=== PATIENT | female | born 2000 | race Caucasian/White ===

== ENCOUNTER 2018-02-21 12:39 | Emergency (ER) | payer OTHER ==
[~2018-02-21] VITALS: Ht 165.1 cm; Wt 62.0 kg
[2018-02-21 12:45] VITALS: BP 120/67; PULSE 79; RESP 18; TEMP 99.1; O2SAT 96
[2018-02-21] MEDS ORDERED: ZOLO50TA PO (13:13)
--- NOTE | 2018-02-21 13:30 | PD ---
HPI Chief Complaint: Abdominal Pain Time Seen by Provider: 12:59 Travel History International Travel<30 days: No Contact w/Intl Traveler<30days: No Traveled to known affect area: No History of Present Illness HPI 17-year-old female came to the emergency room with history right lower quadrant pain for past 1 month. Patient says the pain seems to get worse after she eats and she notices a bump there. She states that currently she is in pain although she did not look to be in any discomfort. Patient has seen SOUND ASSISTANT for this couple times and had pelvic exam and ultrasound done and they have all been normal so far. There is a first time she is coming to the emergency room. No history of vomiting or diarrhea. She is otherwise a healthy person. She had a emergency last year. Patient had a temperature of 99.1 in triage but otherwise normal vital signs PFSH Past Medical History Narrative Medical List of her past medical, surgical, social family history reviewed from the nursing note. Anxiety: Yes Depression: Yes Tetanus Vaccination: < 5 Years ?: Not : 1 Para: 1 Past Surgical History Section: Yes Social History Alcohol Use: No Tobacco Use: Yes Substance Use: No Allergies-Medications (Allergen,Severity, Reaction): Coded Allergies: No Known Allergies (Unverified , 02/21/18) Comments No known drug allergies. Reported Meds & Prescriptions Reported Meds & Active Scripts Active Bentyl (Dicyclomine HCl) 10 Mg Cap 10 Mg PO TID PRN Reported Zoloft (Sertraline HCl) 50 Mg Tab 50 Mg PO DAILY Narrative Medication List of her home medications reviewed from the nursing note. Review of Systems Except as stated in HPI: all other systems reviewed are Neg Gastrointestinal: Positive: Abdominal Pain Physical Exam Narrative GENERAL: Awake, alert, no obvious distress SKIN: Focused skin assessment warm/dry. HEAD: Atraumatic. Normocephalic. EYES: Pupils equal and round. No scleral icterus. No injection or drainage. ENT: No nasal bleeding or discharge. Mucous membranes pink and moist. NECK: Trachea midline. No JVD. CARDIOVASCULAR: Regular rate and rhythm. No murmur appreciated. RESPIRATORY: No accessory muscle use. Clear to auscultation. Breath sounds equal bilaterally. GASTROINTESTINAL: Abdomen soft, non-tender, nondistended. Hepatic and splenic margins not palpable. MUSCULOSKELETAL: No obvious deformities. No clubbing. No cyanosis. No edema. NEUROLOGICAL: Awake and alert. No obvious cranial nerve deficits. Motor grossly within normal limits. Normal speech. PSYCHIATRIC: Appropriate mood and affect; insight and judgment normal. Data Data Last Documented VS Orders Orders Complete Blood Count With Diff (02/21/18 13:33) Basic Metabolic Panel (Bmp) (02/21/18 13:33) Urinalysis - C+S If Indicated (02/21/18 13:33) C-Reactive Protein (Crp) (02/21/18 13:33) Ibuprofen (Motrin) (02/21/18 13:45) Ed Discharge Order (02/21/18 14:25) Labs Laboratory Tests Test 02/21/18 13:45 White Blood Count 6.9 TH/MM3 Red Blood Count 4.77 MIL/MM3 Hemoglobin 14.4 GM/DL Hematocrit 42.4 % Mean Corpuscular Volume 89.0 FL Mean Corpuscular Hemoglobin 30.1 PG Mean Corpuscular Hemoglobin Concent 33.9 % Red Cell Distribution Width 12.7 % Platelet Count 226 TH/MM3 Mean Platelet Volume 9.0 FL Neutrophils (%) (Auto) 48.7 % Lymphocytes (%) (Auto) 40.1 % Monocytes (%) (Auto) 8.2 % Eosinophils (%) (Auto) 1.9 % Basophils (%) (Auto) 1.1 % Neutrophils # (Auto) 3.3 TH/MM3 Lymphocytes # (Auto) 2.7 TH/MM3 Monocytes # (Auto) 0.6 TH/MM3 Eosinophils # (Auto) 0.1 TH/MM3 Basophils # (Auto) 0.1 TH/MM3 CBC Comment DIFF FINAL Differential Comment Urine Color LIGHT-YELLOW Urine Turbidity HAZY Urine pH 7.0 Urine Specific Accident 1.018 Urine Protein NEG mg/dL Urine Glucose (UA) NEG mg/dL Urine Ketones NEG mg/dL Urine Occult Blood NEG Urine Nitrite NEG Urine Bilirubin NEG Urine Urobilinogen LESS THAN 2.0 MG/DL Urine Leukocyte Esterase NEG Urine RBC LESS THAN 1 /hpf Urine WBC 1 /hpf Urine Squamous Epithelial Cells 9 /hpf Urine Amorphous Sediment RARE Microscopic Urinalysis Comment CULT NOT INDICATED Blood Urea Nitrogen 15 MG/DL Creatinine 0.71 MG/DL Random Glucose 88 MG/DL Calcium Level 9.1 MG/DL Sodium Level 139 MEQ/L Potassium Level 4.0 MEQ/L Chloride Level 108 MEQ/L Carbon Dioxide Level 24.1 MEQ/L Anion Gap 7 MEQ/L Estimat Glomerular Filtration Rate 106 ML/MIN C-Reactive Protein LESS THAN 0.29 MG/DL MDM Medical Decision Making Medical Screen Exam Complete: Yes Emergency Medical Condition: Yes Medical Record Reviewed: Yes Differential Diagnosis UTI, abdominal pain NOS, appendicitis Narrative Course 2:04 PM given the fact the patient is very young and the pain has been going on for past 1 month I do not detect any acute situation here. I have ordered CBC CRP and if any of those are abnormal only then will I proceed to a CAT scan. Otherwise she will be discharged home. I explained this to the patient and she understands. Awaiting for the blood work and UA. 2:25 PM all the blood test and UA results are within normal limit. C-reactive protein is normal. I will discharge her. Procedures EKG Prior to Arrival: No Diagnosis Primary Impression: Acute on chronic abdominal pain Additional Impression: Abdominal pain, unspecified site Referrals: Primary Care Physician 3 days Additional Instructions: Please return to the ER if condition worsens or any other new concerns. Otherwise follow-up with your primary care. You can take [id number] Tylenol/Motrin/Advil/ibuprofen for the pain. Med/Other Pt SpecificInfo: No Change to Meds Disposition: 01 DISCHARGE HOME Condition: Stable Paul Gallegos MD February 21, 2018 13:30
[2018-02-21] MEDS ORDERED: IBUPROFEN 600 MG TAB PO ONE (13:45)
[2018-02-21 13:59] LABS: AUTOMATED NEUTROPHIL # 3.3 TH/MM3 (1.8-7.7); BASOPHIL # 0.1 TH/MM3 (0-0.2); BASOPHIL % 1.1 % (0.0-2.0); EOSINOPHIL # 0.1 TH/MM3 (0-0.4); EOSINOPHIL % 1.9 % (0.0-4.0); HEMATOCRIT 42.4 % (35.0-46.0); HEMOGLOBIN 14.4 GM/DL (11.6-15.3); LYMPH % 40.1 % (9.0-44.0); LYMPHOCYTE # 2.7 TH/MM3 (1.0-4.8); MEAN CORPUSCULAR HEMOGLOBIN 30.1 PG (27.0-34.0); MEAN CORPUSCULAR HGB CONC 33.9 % (32.0-36.0); MONO % 8.2 % (0.0-8.0); MONOCYTE # 0.6 TH/MM3 (0-0.9); NEUT % 48.7 % (16.0-70.0); PLATELET COUNT 226 TH/MM3 (150-450); RED BLOOD COUNT 4.77 MIL/MM3 (4.00-5.30); RED CELL DISTRIBUTION WIDTH 12.7 % (11.6-17.2); WHITE BLOOD COUNT 6.9 TH/MM3 (4.0-11.0)
[2018-02-21 14:16] LABS: AMORPHOUS SEDIMENT, URINE RARE; BILIRUBIN, URINE NEG (NEG); BLOOD, URINE NEG (NEG); GLUCOSE,URINE NEG (NEG); KETONE, URINE NEG (NEG); NITRITE,URINE NEG (NEG); SQUAMOUS EPITHELIAL CELL URINE 9 /hpf (0-5); URINE COLOR LIGHT-YELLOW (YELLW/STRAW); URINE LEUKOCYTE ESTERASE NEG (NEG)
[2018-02-21 14:24] LABS: BICARBONATE 24.1 MEQ/L (21.0-32.0); BLOOD UREA NITROGEN 15 MG/DL (7-18); C-REACTIVE PROTEIN LESS THAN 0.29 MG/DL (0.00-0.30); CALCIUM 9.1 MG/DL (8.5-10.1); CHLORIDE 108 MEQ/L (98-107); CREATININE 0.71 MG/DL (0.50-1.00); GLOMERULAR FILTRATION RATE 106 ML/MIN (>89); GLUCOSE,RANDOM 88 MG/DL (74-106); SODIUM (NA) 139 MEQ/L (136-145)
[2018-02-21] MEDS ORDERED: DICY10 PO (21:58)
== END 2018-02-21 14:50 | disposition home or self-care (01) ==
LOC: NEPD 12:39
DX: R10.9 Unspecified abdominal pain (principal); G89.29 Other chronic pain; R10.31 Right lower quadrant pain; F41.8 Other specified anxiety disorders; Z72.0 Tobacco use
CPT/HCPCS: 80048; 81001; 85025; 86140; 99283

== ENCOUNTER 2018-02-21 18:30 | Emergency (ER) | payer OTHER ==
[~2018-02-21] VITALS: Ht 165.1 cm; Wt 56.8 kg
[~2018-02-21 18:30] MED LIST: ZOLO50TA PO
[2018-02-21 18:49] VITALS: BP 125/58; PULSE 82; RESP 18; TEMP 99.3; O2SAT 99
[2018-02-21] MEDS ORDERED: SODIUM CHLOR 0.9% 1000 ML INJ 1,000 ML IV SCH (19:19)
--- NOTE | 2018-02-21 19:23 | PD ---
HPI Chief Complaint: Abdominal Pain Time Seen by Provider: 19:16 Travel History International Travel<30 days: No Contact w/Intl Traveler<30days: No Traveled to known affect area: No History of Present Illness HPI 17-year-old female here for evaluation of right lower quadrant abdominal pain. The patient reports having this pain for the last month. She was seen in the emergency department earlier and had normal labs and was discharged home with outpatient follow-up. She has been seen by gynecology for this pain and reports pelvic exams and pelvic ultrasounds, all of which been normal. She denies abnormal vaginal discharge or bleeding. She does not get menstrual periods because she receives Depo-Provera. No urinary symptoms. Pain is described as cramping, 8 out of 10, constant, worse after eating, nonradiating, improved when pressure is applied to the area. She becomes nauseous but has not vomited. No diarrhea. She reports low-grade fevers. She is concerned about this possibly being her appendix. [facility] Past Medical History Anxiety: Yes Depression: Yes ?: Not LMP: UNKNOWN : 1 Para: 1 Past Surgical History Section: Yes Social History Alcohol Use: No Tobacco Use: Yes Substance Use: No Allergies-Medications (Allergen,Severity, Reaction): Coded Allergies: No Known Allergies (Unverified , 02/21/18) Reported Meds & Prescriptions Reported Meds & Active Scripts Active Reported Zoloft (Sertraline HCl) 50 Mg Tab 50 Mg PO DAILY Review of Systems Except as stated in HPI: all other systems reviewed are Neg Physical Exam Narrative GENERAL: Well-developed, well-nourished, no apparent distress. SKIN: Focused skin assessment warm/dry. HEAD: Atraumatic. Normocephalic. EYES: Pupils equal and round. No scleral icterus. No injection or drainage. ENT: No nasal bleeding or discharge. Mucous membranes pink and moist. NECK: Trachea midline. No JVD. CARDIOVASCULAR: Regular rate and rhythm. No murmur appreciated. RESPIRATORY: No accessory muscle use. Clear to auscultation. Breath sounds equal bilaterally. GASTROINTESTINAL: Abdomen soft, nondistended. Mild right lower quadrant tenderness without rebound or guarding. Rest of abdomen is soft and nontender. Normal bowel sounds. No hernias. No masses. MUSCULOSKELETAL: No obvious deformities. No clubbing. No cyanosis. No edema. NEUROLOGICAL: Awake and alert. No obvious cranial nerve deficits. Motor grossly within normal limits. Normal speech. PSYCHIATRIC: Appropriate mood and affect; insight and judgment normal. Data Data Last Documented VS Vital Signs Date Time Temp Pulse Resp B/P (MAP) Pulse Ox O2 Delivery O2 Flow Rate FiO2 02/21/18 19:50 20 02/21/18 18:49 99.3 82 125/58 (80) 99 Orders Orders Beta Hcg (Quant/Titer) (02/21/18 19:19) Complete Blood Count With Diff (02/21/18 19:19) Comprehensive Metabolic Panel (02/21/18 19:19) Prothrombin Time / Inr (Pt) (02/21/18 19:19) Act Partial Throm Time (Ptt) (02/21/18 19:19) Urinalysis - C+S If Indicated (02/21/18 19:19) Ct Abd/Pel W Iv Contrast(Rout) (02/21/18 19:19) Iv Access Insert/Monitor (02/21/18 19:19) Ecg Monitoring (02/21/18 19:19) Oximetry (02/21/18 19:19) Sodium Chlor 0.9% 1000 Ml Inj (Ns 1000 M (02/21/18 19:19) Sodium Chloride 0.9% Flush (Ns Flush) (02/21/18 19:30) Diatrizoate Liq ( Gastroview Liq) (02/21/18 19:30) Dicyclomine (Bentyl) (02/21/18 19:30) Oral Contrast - Adult (02/21/18 19:26) Ed Urine Pregnancytest Poc (02/21/18 19:57) Iohexol 350 Inj (Omnipaque 350 Inj) (02/21/18 21:40) Labs Laboratory Tests Test 02/21/18 19:40 02/21/18 19:45 Urine Color YELLOW Urine Turbidity CLEAR Urine pH 6.5 Urine Specific Garretson 1.025 Urine Protein NEG mg/dL Urine Glucose (UA) NEG mg/dL Urine Ketones NEG mg/dL Urine Occult Blood NEG Urine Nitrite NEG Urine Bilirubin NEG Urine Urobilinogen LESS THAN 2.0 MG/DL Urine Leukocyte Esterase NEG Urine WBC 2 /hpf Urine Squamous Epithelial Cells 5 /hpf Urine Mucus FEW /lpf Microscopic Urinalysis Comment CULT NOT INDICATED White Blood Count 7.8 TH/MM3 Red Blood Count 4.96 MIL/MM3 Hemoglobin 15.6 GM/DL Hematocrit 43.8 % Mean Corpuscular Volume 88.2 FL Mean Corpuscular Hemoglobin 31.4 PG Mean Corpuscular Hemoglobin Concent 35.6 % Red Cell Distribution Width 12.8 % Platelet Count 227 TH/MM3 Mean Platelet Volume 9.0 FL Neutrophils (%) (Auto) 44.6 % Lymphocytes (%) (Auto) 45.2 % Monocytes (%) (Auto) 7.0 % Eosinophils (%) (Auto) 2.2 % Basophils (%) (Auto) 1.0 % Neutrophils # (Auto) 3.5 TH/MM3 Lymphocytes # (Auto) 3.5 TH/MM3 Monocytes # (Auto) 0.5 TH/MM3 Eosinophils # (Auto) 0.2 TH/MM3 Basophils # (Auto) 0.1 TH/MM3 CBC Comment DIFF FINAL Differential Comment Prothrombin Time 10.0 SEC Prothromb Time International Ratio 1.0 RATIO Activated Partial Thromboplast Time 26.6 SEC Blood Urea Nitrogen 17 MG/DL Creatinine 0.71 MG/DL Random Glucose 83 MG/DL Total Protein 8.3 GM/DL Albumin 4.5 GM/DL Calcium Level 9.3 MG/DL Alkaline Phosphatase 94 U/L Aspartate Amino Transf (AST/SGOT) 19 U/L Alanine Aminotransferase (ALT/SGPT) 19 U/L Total Bilirubin 0.3 MG/DL Sodium Level 140 MEQ/L Potassium Level 4.0 MEQ/L Chloride Level 105 MEQ/L Carbon Dioxide Level 23.7 MEQ/L Anion Gap 11 MEQ/L Estimat Glomerular Filtration Rate 106 ML/MIN Human Chorionic Gonadotropin, Quant LESS THAN 1 MIU/ML [facility] Medical Decision Making Medical Screen Exam Complete: Yes Emergency Medical Condition: Yes Differential Diagnosis Appendicitis, colitis, ovarian cyst, ovarian torsion less likely, UTI, cystitis , PID, TOA Narrative Course Vital signs are within normal limits. CBC and CMP are essentially unremarkable. UA is within normal limits, not suggestive of UTI. Beta-hCG is negative. CT abdomen pelvis: CONCLUSION: No acute abnormalities seen. The appendix is not seen. Significant inflammatory change is not seen. The patient was made aware of all findings. On reassessment she is resting comfortably and states she feels significantly improved after receiving Toradol and Bentyl. She was given a copy of her CT abdomen pelvis port. Again she has already seen a ENGINE TESTING SUPERVISOR for this pain within the last month and states that she had pelvic exams and pelvic ultrasound that were unremarkable. She does not have any abnormal vaginal discharge or bleeding today. I do not believe pelvic workup is necessary at this time. Patient agrees with this. Patient likely has some irritable bowel syndrome. She is stable for discharge home with outpatient follow-up. I will give her the name of the aed trainer on- call today with him to make an appointment with this week. She was also advised to follow-up with her primary care physician this week. I will give her a prescription for Bentyl. She was advised on when to return to the emergency department. She verbalizes understanding and agreement with plan. Diagnosis Primary Impression: Abdominal pain Qualified Codes: R10.31 - Right lower quadrant pain Referrals: Miryam Bee MD 3 days Primary Care Physician 3 days Additional Instructions: Follow-up with your primary care physician this week. Follow-up with aed trainer Dr. Bee or a aed trainer of your choice this week. Return to the emergency department for worsening symptoms or any other concerns. Scripts Dicyclomine (Bentyl) 10 Mg Cap 10 MG PO TID Y for Bowel Management, #30 CAP 0 Refills Prov: Jan Owens MD 02/21/18 Disposition: 01 DISCHARGE HOME Condition: Stable Jan Owens MD February 21, 2018 19:23
[2018-02-21] MEDS ORDERED: DIATRIZOATE MEGLUM/DIATRIZOATE SOD 9 ML CUP PO ONE (19:30)
[2018-02-21] MEDS ORDERED: DICYCLOMINE HCL 10 MG CAP PO ONE (19:30)
[2018-02-21] MEDS ORDERED: SODIUM CHLORIDE 0.9% FLUSH 10 ML FLUSH IV FLUSH PRN (19:30)
[2018-02-21 19:50] VITALS: RESP 20
[2018-02-21 20:11] LABS: AUTOMATED NEUTROPHIL # 3.5 TH/MM3 (1.8-7.7); BASOPHIL # 0.1 TH/MM3 (0-0.2); EOSINOPHIL # 0.2 TH/MM3 (0-0.4); EOSINOPHIL % 2.2 % (0.0-4.0); HEMATOCRIT 43.8 % (35.0-46.0); HEMOGLOBIN 15.6 GM/DL (11.6-15.3); LYMPH % 45.2 % (9.0-44.0); LYMPHOCYTE # 3.5 TH/MM3 (1.0-4.8); MEAN CELL VOLUME 88.2 FL (80.0-100.0); MEAN CORPUSCULAR HEMOGLOBIN 31.4 PG (27.0-34.0); MEAN CORPUSCULAR HGB CONC 35.6 % (32.0-36.0); MONOCYTE # 0.5 TH/MM3 (0-0.9); NEUT % 44.6 % (16.0-70.0); PLATELET COUNT 227 TH/MM3 (150-450); RED BLOOD COUNT 4.96 MIL/MM3 (4.00-5.30); RED CELL DISTRIBUTION WIDTH 12.8 % (11.6-17.2); WHITE BLOOD COUNT 7.8 TH/MM3 (4.0-11.0)
[2018-02-21 20:19] LABS: BILIRUBIN, URINE NEG (NEG); BLOOD, URINE NEG (NEG); GLUCOSE,URINE NEG (NEG); KETONE, URINE NEG (NEG); MUCUS URINE FEW /lpf (OCC); NITRITE,URINE NEG (NEG); PH, URINE 6.5 (5.0-8.5); SQUAMOUS EPITHELIAL CELL URINE 5 /hpf (0-5); URINE COLOR YELLOW (YELLW/STRAW); URINE LEUKOCYTE ESTERASE NEG (NEG)
[2018-02-21 20:32] LABS: ALBUMIN 4.5 GM/DL (3.4-5.0); AST (GOT) 19 U/L (16-38); BICARBONATE 23.7 MEQ/L (21.0-32.0); BLOOD UREA NITROGEN 17 MG/DL (7-18); CALCIUM 9.3 MG/DL (8.5-10.1); CHLORIDE 105 MEQ/L (98-107); CREATININE 0.71 MG/DL (0.50-1.00); GLOMERULAR FILTRATION RATE 106 ML/MIN (>89); GLUCOSE,RANDOM 83 MG/DL (74-106); SODIUM (NA) 140 MEQ/L (136-145)
[2018-02-21 20:34] LABS: ALT (GPT) 19 U/L (9-42)
[2018-02-21 20:38] LABS: ALKALINE PHOSPHATASE 94 U/L (45-117); TOTAL BILIRUBIN ADULT 0.3 MG/DL (0.2-1.0); TOTAL PROTEIN 8.3 GM/DL (6.4-8.2)
[2018-02-21] MEDS ORDERED: IOHEXOL 350 MG/ML 10 ML VIAL (for RAD DIAG) IVCONTRAST ONE (21:40)
--- NOTE | 2018-02-21 21:52 | RADRPT ---
EXAM DATE/TIME: 02/21/2018 21:30 [place] COMPARISON: No previous studies available for comparison. INDICATIONS : Right lower quadrant pain. IV CONTRAST: 80 cc Omnipaque 350 (iohexol) IV ORAL CONTRAST: Partial prescribed oral contrast ingested. RADIATION DOSE: 4.71 CTDIvol (mGy) MEDICAL HISTORY : None SURGICAL HISTORY : section. ENCOUNTER: Initial ACUITY: 3 days PAIN SCALE: 9/10 LOCATION: Right lower quadrant TECHNIQUE: Volumetric scanning of the abdomen and pelvis was performed. Using automated exposure control and ad justment of the mA and/or kV according to patient size, radiation dose was kept as low as reasonably achievable to obtain optimal diagnostic quality images. DICOM format image data is available electro nically for review and comparison. FINDINGS: LOWER LUNGS: The visualized lower lungs are clear. LIVER: Homogeneous density without lesion. There is no dilation of the biliary tree. No calcified gallston es. SPLEEN: Normal size without lesion. PANCREAS: Within normal limits. KIDNEYS: Normal in size and shape. There is no stone or hydronephrosis. There is a 6 mm cyst at the posterior mid right kidney. ADRENAL GLANDS: Within normal limits. VASCULAR: There is no aortic aneurysm. BOWEL/MESENTERY: The stomach, small bowel, and colon demonstrate no acute abnormality. There is no free intraperitone al air or fluid. The appendix is not seen. ABDOMINAL WALL: Within normal limits. RETROPERITONEUM: There is no lymphadenopathy. BLADDER: No wall thickening or mass. REPRODUCTIVE: Within normal limits. INGUINAL: There is no lymphadenopathy or hernia. MUSCULOSKELETAL: Within normal limits for patient age. CONCLUSION: No acute abnormalities seen. The appendix is not seen. Significant inflammatory change is not seen. Osmin Bettencourt MD on February 21, 2018 at 21:47 Board Certified Radiologist. This report was verified electronically.
[2018-02-21] MEDS ORDERED: DICY10 PO (21:58)
== END 2018-02-21 22:30 | disposition home or self-care (01) ==
LOC: NEPD 18:30
DX: R10.31 Right lower quadrant pain (principal); R11.0 Nausea; R50.9 Fever, unspecified; F41.8 Other specified anxiety disorders; Z72.0 Tobacco use
CPT/HCPCS: 74177; 80053; 81001; 84702; 84703; 85025; 85610; 85730; 99285; J7030; Q9963; Q9967

== ENCOUNTER 2018-03-29 16:29 | Emergency (ER) | payer OTHER ==
[~2018-03-29] VITALS: Ht 165.1 cm; Wt 60.0 kg
[~2018-03-29 16:29] MED LIST changes: +DICY10 PO
[2018-03-29 17:03] VITALS: BP 134/69; PULSE 86; RESP 17; TEMP 97.9; O2SAT 96
--- NOTE | 2018-03-29 19:45 | PD ---
HPI Chief Complaint: Respiratory Symptoms Time Seen by Provider: 19:45 Travel History International Travel<30 days: No Contact w/Intl Traveler<30days: No Traveled to known affect area: No History of Present Illness HPI 17-year-old female came to the emergency room with history of shortness of breath, light headedness since this morning. Patient says that she was also having some pain at her scar today. Her was 1 year ago. She denies doing any heavy work or weight lifting. Patient says she has never felt like this in the past. She also is 4 days late for her. And wanted to know if she was . There was urine taken in triage but patient says she does not know the result of it. Patient however says that currently she is feeling all better and would like to go home and take care of her 1-year-old baby. She does not have history of asthma and is not a smoker but does have history of anxiety. Patient says her symptoms continued from morning till about an hour ago. Currently she feels absolutely fine. [facility] Past Medical History Narrative Medical List of her past medical, surgical, social and family history reviewed from the nursing note Anxiety: Yes Depression: Yes Immunizations Current: Yes ?: Unknown : 1 Para: 1 Past Surgical History Section: Yes Social History Alcohol Use: No Tobacco Use: Yes Substance Use: No Allergies-Medications (Allergen,Severity, Reaction): Coded Allergies: No Known Allergies (Unverified , 02/21/18) Comments List of her allergies reviewed from the nursing note. Reported Meds & Prescriptions Reported Meds & Active Scripts Active Bentyl (Dicyclomine HCl) 10 Mg Cap 10 Mg PO TID PRN Reported Zoloft (Sertraline HCl) 50 Mg Tab 50 Mg PO DAILY Narrative Medication List of her home medications reviewed from the nursing note Review of Systems Except as stated in HPI: all other systems reviewed are Neg Respiratory: Positive: Shortness of Breath Neurologic: Positive: Dizziness Physical Exam Narrative GENERAL: Awake, alert, no obvious distress SKIN: Focused skin assessment warm/dry. HEAD: Atraumatic. Normocephalic. EYES: Pupils equal and round. No scleral icterus. No injection or drainage. ENT: No nasal bleeding or discharge. Mucous membranes pink and moist. NECK: Trachea midline. No JVD. CARDIOVASCULAR: Regular rate and rhythm. No murmur appreciated. RESPIRATORY: No accessory muscle use. Clear to auscultation. Breath sounds equal bilaterally. GASTROINTESTINAL: Abdomen soft, non-tender, nondistended. Hepatic and splenic margins not palpable. MUSCULOSKELETAL: No obvious deformities. No clubbing. No cyanosis. No edema. NEUROLOGICAL: Awake and alert. No obvious cranial nerve deficits. Motor grossly within normal limits. Normal speech. PSYCHIATRIC: Appropriate mood and affect; insight and judgment normal. Data Data Last Documented VS Orders Orders Ed Urine Pregnancytest Poc (03/29/18 17:28) Ed Discharge Order (03/29/18 20:16) [facility] Medical Decision Making Medical Screen Exam Complete: Yes Emergency Medical Condition: Yes Medical Record Reviewed: Yes Differential Diagnosis Anxiety, panic attack, Narrative Course 8:08 PM patient's urine was negative. I have asked the nurse to repeat vital signs. She is young and otherwise healthy and given normal vital signs and the fact that she saying she feels okay now I am comfortable discharging her home. She says she has an appointment with her primary care on the and would like to keep that. Procedures EKG Prior to Arrival: No Diagnosis Primary Impression: Normal physical exam Additional Instructions: Please follow-up with your primary care as per the appointment. Return to the ER if condition worsens any other new concerns. Med/Other Pt SpecificInfo: No Change to Meds Disposition: 01 DISCHARGE HOME Condition: Stable Paul Gallegos MD Mar 29, 2018 19:45
[2018-03-29 20:14] VITALS: BP 106/63; PULSE 78; RESP 18; TEMP 98.7; O2SAT 99
== END 2018-03-29 20:30 | disposition home or self-care (01) ==
LOC: NEPD 16:29
DX: R06.02 Shortness of breath (principal); R42 Dizziness and giddiness; F41.9 Anxiety disorder, unspecified; F32.9 Major depressive disorder, single episode, unspecified; Z79.899 Other long term (current) drug therapy; Z72.0 Tobacco use
CPT/HCPCS: 84703; 99282